=== PATIENT | male | born 1930 | race Caucasian/White ===

== ENCOUNTER 2016-11-12 09:29 | Day surgery (SDC) | payer MEDICARE, BC ==
[2016-11-10 11:46] VITALS: BMI 26.5
--- NOTE | 2016-11-12 06:33 | HP ---
DATE OF ADMISSION: Chief complaint is plugged sensation in the left ear. HISTORY OF PRESENT ILLNESS: This patient is an 86-year-old male who was seen in my office complaining of having a blockage in his left ear. At this time, the patient was seen in my office in September he stated the symptoms had been there for approximately 1 or 2 weeks. He denied any recent upper respiratory tract infection. He wears bilateral hearing aids. Clinical examination in the office revealed that the examination of the ears showed the left tympanic membrane to be dull with fluid in the left middle ear space suggesting a left chronic serous otitis media. The patient was placed on several courses of oral antibiotics and oral steroids. He was recently rechecked in my office and at that time was still complaining of the left ear feeling blocked. In addition to this, clinical exam confirmed that the left middle ear space appeared to have fluid present. 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 It was explained to him that he might possibly get relief by allowing me to insert a ventilation tube in the left tympanic membrane. However, again the patient was cautioned that at the time of the surgery there may not be fluid in which case a tube would not be inserted. The patient is, therefore, scheduled to undergo a left myringotomy with insertion of a ventilation tube under either general anesthesia or IV sedation depending upon the anesthesia department's preference. Past medical history reveals the patient has an allergy to FLOXIN and also AUGMENTIN. His only previous surgery was a left herniorrhaphy. Current medications include meloxicam, Zocor, Prilosec, Synthroid, Xalatan, Cosopt and Lasix. Review of systems reveals that the cardiovascular system was negative. Gastrointestinal system was positive for GERD. Metabolic/endocrine system is positive for hypercholesterolemia and hypothyroidism. The musculoskeletal system is positive for osteoarthritis. The remainder of the review of systems essentially unremarkable. PHYSICAL EXAMINATION: This patient is a very pleasant 86-year-old male who is alert and cooperative. HEENT EXAMINATION: Patient is normocephalic. Right tympanic membrane and middle ear space are free of any fluid or infection. Examination of left ear reveals the left tympanic membrane appears to be dull with a suggestion of fluid in the left middle ear space. Pupils equal, round, and reactive to light and accommodation. Extraocular movements are within normal limits. Intranasal examination reveals severe septal deviation with compensatory hypertrophy of the inferior turbinates and a moderate amount of mucus on the mucous membranes and draining down the posterior pharynx. The oropharynx, palpation of the neck, cranial nerves 2 through 12 and remainder of the head and neck exam are all within normal limits. CHEST/CARDIOVASCULAR: Both lung rangel are clear to percussion and auscultation. The patient is in regular sinus rhythm. S1 and S2 are present without evidence of any murmurs, S3s or S4s. Peripheral pulses are bilaterally symmetrical and within normal limits. ABDOMEN: There is no evidence of any masses, megaly or tenderness. The abdomen is soft. Skin is unremarkable. Musculoskeletal and neurological are within normal limits. RECTAL EXAM: The rectal exam is deferred at this time because the patient has this done on a regular basis at his family physician's office. The remainder of physical exam is essentially unremarkable. IMPRESSION: Chronic left serous otitis media. PLAN: The patient is scheduled to undergo a left myringotomy with insertion of a ventilation tube under either general anesthesia or IV sedation depending upon the anesthesia department's preference. ATTENTION RNS IN THE PRESURGICAL AREA: This patient does not have any presurgical prophylactic antibiotics ordered by myself or by my office. In fact, I have not ordered any presurgical medications for this patient. If any presurgical prophylactic antibiotics arrive at the presurgical area for this patient they should be returned to pharmacy and please make sure the patient's account is credited appropriately. Again, I did not order any presurgical prophylactic antibiotics for the insertion of a ventilation tube. I have explained the operation/procedure to the patient, including the risks, benefits, side effects, alternative therapies (including not receiving the proposed treatment or service), the likelihood of the patient achieving his/her goals, and potential recuperation problems for the procedure/sedation/analgesia, as well as any blood products, if indicated. I also explained to the patient the risks, benefits, and side effects of the alternatives, as well as the risks related to not receiving the proposed procedure, care treatment or services.
[~2016-11-12 09:29] MED LIST: LACTATED RINGERS 1,000 ML IV SCH; Pre Op ABX Message 1 EACH MISC MISCELLANE ONE
[2016-11-12 10:26] VITALS: RESP 16
[2016-11-12] MEDS ORDERED: LIDOCAINE 1% 20 ML VIAL (10MG/ML) FOR IV START INTRADERMA ONE (10:27)
[2016-11-12] MEDS ORDERED: NEOMYCIN-POLYMYXIN-HC (3.5-10,000-10 MG) OTIC DROPS 10 ML BTL OTIC ONE (10:45)
[2016-11-12] MEDS ORDERED: LIDOCAINE 1% INJ 10MG/ML (20 ML MDV) ONE (10:46)
[2016-11-12] MEDS ORDERED: PROPOFOL 10 MG/ML 20 ML VIAL IV ONE (10:46)
[2016-11-12] MEDS ORDERED: NEOMYCIN-POLYMYXIN-HC (3.5-10,000-10 MG) OTIC DROPS 10 ML BTL LEFT EAR ONE ×2 (11:00)
[2016-11-12 11:25] VITALS: TEMP 97
[2016-11-12 12:35] VITALS: BP 163/77; PULSE 49
--- NOTE | 2016-11-14 17:24 | OP ---
DATE OF SERVICE: 11/12/2016 SURGEON: BACILIO NOWAK MD AUTOMOTIVE SERVICE TECHNICIAN: PREOPERATIVE DIAGNOSIS: Left chronic serous otitis media. POSTOPERATIVE DIAGNOSIS: Left chronic serous otitis media. OPERATION: Left myringotomy with insertion of a titanium pediatric Tytan ventilation tubes. ANESTHESIA: General. ESTIMATED BLOOD LOSS: SPECIMENS REMOVED: COMPLICATIONS: None. OPERATIVE FINDINGS: DESCRIPTION OF PROCEDURE: The patient was placed on the operating table in the supine position after uneventful mask inhalation induction, satisfactory general anesthesia was obtained. Using the [employer] operating microscope and #3 aural speculum, which was inserted into the patient's left ear, the left external auditory canal was cleansed of all wax and debris. Next, the myringotomy knife was used to make an incision in the anterior/inferior quadrant of the left tympanic membrane. The left middle ear space was suctioned free of a small amount of fluid and in addition to this, it was noted that there was significant negative pressure present in the left middle ear space. Therefore, it was elected to insert a titanium pediatric Tytan ventilation tube through the previously made myringotomy incision which was accomplished without any difficulty. At this point, the procedure was terminated. There were no intraoperative complications. The patient tolerated the procedure well and was returned to the recovery room in satisfactory condition.
== END 2016-11-12 13:15 | disposition home or self-care (01) ==
LOC: OR 09:29
PROVIDERS: ATTEND Otolaryngology
DX: H65.22 Chronic serous otitis media, left ear (principal); K21.9 Gastro-esophageal reflux disease without esophagitis; E78.00 Pure hypercholesterolemia, unspecified; E03.9 Hypothyroidism, unspecified; M19.90 Unspecified osteoarthritis, unspecified site; I69.354 Hemiplegia and hemiparesis following cerebral infarction affecting left non-dominant side; Z79.899 Other long term (current) drug therapy; Z88.1 Allergy status to other antibiotic agents
CPT/HCPCS: 84132; 69436; J2001; J2704

== ENCOUNTER → 2017-02-11 | Outpatient (CLI) | payer MEDICARE, BC ==
[2017-02-11 14:50] LABS: Anion Gap 10 mmol/L; Blood Urea Nitrogen 16 mg/dL (9-20); Calcium 9.1 mg/dL (8.4-10.2); Carbon Dioxide 30 mmol/L (22-30); Chloride 94 mmol/L (98-107); Glucose 93 mg/dL (74-99); Magnesium 1.9 mg/dL (1.6-2.3); Non-African American GFR(MDRD) >60 (>60 ml/min/1.73 sqM); Phosphorous 3.4 mg/dL (2.5-4.5); Potassium 3.8 mmol/L (3.5-5.1); Sodium 134 mmol/L (137-145)
== END | disposition home or self-care (01) ==
LOC: LABWHC1 14:23
PROVIDERS: ATTEND Internal Medicine Critical Care Medicine
DX: R60.9 Edema, unspecified (principal)
CPT/HCPCS: 36415; 80048; 83735; 84100

== ENCOUNTER → 2017-03-23 | Outpatient (CLI) | payer MEDICARE, BC ==
[2017-03-23 11:09] LABS: Anion Gap 12 mmol/L; Blood Urea Nitrogen 13 mg/dL (9-20); Calcium 9.2 mg/dL (8.4-10.2); Carbon Dioxide 32 mmol/L (22-30); Chloride 92 mmol/L (98-107); Glucose 93 mg/dL (74-99); Magnesium 1.8 mg/dL (1.6-2.3); Non-African American GFR(MDRD) >60 (>60 ml/min/1.73 sqM); Phosphorous 3.2 mg/dL (2.5-4.5); Potassium 3.2 mmol/L (3.5-5.1); Sodium 136 mmol/L (137-145)
== END | disposition home or self-care (01) ==
LOC: LABWHC1 10:28
PROVIDERS: ATTEND Internal Medicine Critical Care Medicine
DX: R60.9 Edema, unspecified (principal)
CPT/HCPCS: 36415; 80048; 83735; 84100

== ENCOUNTER → 2018-06-22 | Outpatient (CLI) | payer MEDICARE, BC ==
[2018-06-22 15:42] LABS: Basophils % (A) 0 %; Eosinophils # (A) 0.3 k/uL (0-0.7); Eosinophils % (A) 5 %; HCT 42.3 % (39.0-53.0); HGB 13.7 gm/dL (13.0-17.5); Lymphocytes # (A) 1.6 k/uL (1.0-4.8); Lymphocytes % (A) 25 %; MCH 29.1 pg (25.0-35.0); MCHC 32.3 g/dL (31.0-37.0); MCV 90.1 fL (80.0-100.0); Mean Platelet Volume 7.2; Monocytes # (A) 0.4 k/uL (0-1.0); Monocytes % (A) 7 %; Neutrophils # (A) 3.8 k/uL (1.3-7.7); Neutrophils % (A) 60 %; Platelet Count 253 k/uL (150-450); RDW 13.7 % (11.5-15.5); WBC 6.3 k/uL (3.8-10.6)
[2018-06-23 02:35] LABS: T4, Free (Free Thyroxine) 1.1 ng/dL (0.80-1.80)
[2018-06-23 02:40] LABS: Albumin 4.2 g/dL (3.80-4.90); Albumin/Globulin Ratio 1.56 (1.20-2.10); Calcium 9.2 mg/dL (8.7-10.3); Globulin 2.7 g/dL (2.1-3.7); Potassium 3.9 mmol/L (3.5-5.5); Total Bilirubin 0.4 mg/dL (0.3-1.2); Total Protein 6.9 g/dL (6.2-8.2)
== END | disposition home or self-care (01) ==
LOC: LABWHC1 14:06
PROVIDERS: ATTEND Internal Medicine
DX: Z00.00 Encounter for general adult medical examination without abnormal findings (principal)
CPT/HCPCS: 36415; 80053; 84439; 84443; 85025